=== PATIENT | male | born 1950 | race Two or more races ===

== ENCOUNTER 2019-10-30 10:59 | Day surgery (SDC) | payer OTHER, MEDICAID ==
[~2019-10-30] VITALS: Ht 172.7 cm; Wt 74.5 kg
[~2019-10-30 10:59] MED LIST: BACITRACIN 50,000 UNIT in IV NORMAL SALINE 500ML BAG 500 ML IRR ONE; BUPIVACAINE-EPI 0.5%-1:200000 MPF 30 ML VIAL. INJ ONE; DEXAMETHASONE SOD PHOS 4 MG/ML VIAL ONE; HYDROmorphone 2 MG/ML VIAL IV PRN; IV RINGERS,LACTATED 1000ML 1,000 ML IV SCH; LIDOCAINE 1% PF 2 ML VIAL. ID PRN; LIDOCAINE 2% PF 5 ML VIAL. ONE; MORPHINE SULFATE 2 MG/ML VIAL. IV PRN; ONDANSETRON PF 4 MG/2 ML VIAL. IV PRN; ONDANSETRON PF 4 MG/2 ML VIAL. ONE; PROCHLORPERAZINE 10 MG/2 ML VIAL. IV PRN; PROPOFOL 20 ML IV ONE; ROCURONIUM 50 MG/5 ML VIAL. ONE; fentaNYL PF VIAL 100 MCG/2 ML VIAL IV PRN; fentaNYL PF VIAL 100 MCG/2 ML VIAL ONE
[2019-10-30] MEDS ORDERED: INSULIN LISPRO 100 UNIT/ML 3ML VIAL for OP,RR ONLY. SQ PRN (11:15)
[2019-10-30] MEDS ORDERED: METF500T16 PO (11:51)
[2019-10-30] MEDS ORDERED: CRESTOR5 MG PO (11:51)
[2019-10-30] MEDS ORDERED: GLYCOPYRROLATE 1 MG/5 ML VIAL. ONE (13:44)
[2019-10-30] MEDS ORDERED: NEOSTIGMINE METHYLSULFATE 5 MG/5 ML SYRINGE. ONE (13:44)
--- NOTE | 2019-10-30 14:30 | PDOC4 ---
Operative Note Operative Note Operative Note: Preoperative Diagnosis: Left inguinal hernia, umbilical hernia Postoperative Diagnosis: Same Procedure: Left inguinal hernia repair with mesh, umbilical hernia repair with mesh Surgeon: Dre Anesthesia: Gen. EBL: 25 mL Specimen: None Drains: None Complications: None Indication: The patient is a 68-year-old male who was referred with a left inguinal hernia. Examination identified also an umbilical hernia. He is offered repair of both hernias. The risks of surgery were discussed which include bleeding, infection, pain, recurrence, anesthetic risk, potential need for additional surgery or procedure. He understands and would like to proceed. Description: The patient was taken the operating room and placed supine on the operating table. Gen. anesthesia was performed. The left groin and midabdomen were shaved and prepped with ChloraPrep and draped in a standard surgical manner. An incision was made in the skin lines of left groin with a scalpel. Cautery dissection was carried onto the external oblique aponeurosis. The aponeurosis was opened down to the external ring. The contents of the inguinal canal were digitally mobilized and encircled Mumtaz drain. The patient had a moderate to large sized direct hernia defect. The edges of the hernia defect were dissected free. The attenuated transversalis fascia was divided exposing the preperitoneal fat. The preperitoneal fat was reduced and the defect was filled with an extra large Phasix mesh plug. The plug was sutured around its periphery with 2-0 Vicryl. A Prolene keyhole mesh patch was then used for reinforcement of the inguinal floor. The mesh was also sutured in position with 2-0 Vicryl. A slit was made to accommodate the cord structures. Upon completion the mesh rested well providing full coverage of the inguinal floor and the plug remained intact deep to it. The external oblique was closed over the mesh with 2-0 Vicryl. The subcutaneous tissues closed with 3-0 Vicryl. Skin was approximate 4-0 Monocryl. The incision was covered we directed our attention to the umbilicus. A curved infraumbilical incision was made in the skin with a scalpel. Cautery dissection was carried down to the fascia. The umbilical tissue was elevated off the fascia exposing a small hernia defect. A preperitoneal plane was developed circumferentially with blunt dissection. A small Ventralex ST mesh was placed in this plane. The mesh was sutured in position using 0 Prolene placed in a horizontal mattress fashion. The fascial edges were closed over the mesh with 0 Prolene. The umbilicus was secured back to the fascia with 0 Vicryl. The subcutaneous tissues closed with 3-0 Vicryl and skin approximated with 4-0 Monocryl. Both incisions were infiltrated with half percent Marcaine with epinephrine. Steri-Strips and dressings were placed. The patient tolerated the procedure well and was sent to the recovery room in stable condition. At the end of the case all counts were correct. ADRIANO ROBISON MD Oct 30, 2019 14:30
--- NOTE | 2019-10-30 14:31 | DISCH ---
DISCHARGE INSTRUCTIONS Condition on Discharge Condition on Discharge: Unstable Activity After Discharge Activity Instructions for Disc: Other, see below (no lifting over 20 lbs X 4 weeks) Diet after Discharge Diet after Discharge: Regular Wound Incision Care Wound/Incision Care: Other, see below (keep dressings clean and dry X 72 hours, may then remove and shower) Follow-Up Follow up with: Dr Robison in 2 weeks, call office for appt [phone] ADRIANO ROBISON MD Oct 30, 2019 14:31
[2019-10-30] MEDS ORDERED: oxyCODONE/APAP 5/325 1 TAB TABLET PO PRN ×2 (15:00)
[2019-10-30] MEDS ORDERED: OXYC-325 PO (15:31)
[2019-10-30 15:45] VITALS: BP 131/61
== END 2019-10-30 16:54 | disposition home or self-care (01) ==
LOC: SURG 10:59
PROVIDERS: ATTEND Surgery
DX: K40.90 Unilateral inguinal hernia, without obstruction or gangrene, not specified as recurrent (principal); K42.9 Umbilical hernia without obstruction or gangrene; E78.00 Pure hypercholesterolemia, unspecified; E11.9 Type 2 diabetes mellitus without complications; Z79.899 Other long term (current) drug therapy; Z72.89 Other problems related to lifestyle; Z79.84 Long term (current) use of oral hypoglycemic drugs
CPT/HCPCS: 49505; 49585; 82962; A7015; C1781; J1100; J2001; J2405; J2704; J2710; J3010; J3490; J7040